=== PATIENT | male | born 1970 | race American Indian/Alaskan Native ===

== ENCOUNTER 2019-01-24 05:28 | Inpatient (IN) | payer SELFPAY ==
--- NOTE | 2019-01-24 06:12 | XRay Report ---
PROCEDURE: XR CHEST 1V AP TECHNIQUE: AP portable chest radiograph HISTORY: Chest Pain COMPARISONS: None FINDINGS: Right chest central line terminates in the region of the superior cavoatrial junction. No mediastinal shift. Cardiac silhouette is not enlarged. Patchy right greater than left basilar opacities. Mild bl unting of the right costophrenic angle. No pneumothorax or acute skeletal finding. IMPRESSION: Patchy bibasilar opacities with small right and possible trace left pleural effusion may be due to ed emily and/or infection. This document is electronically signed by Johnny Ryan MD., January 24 2019 06:10:47 AM ET
[2019-01-24 06:22] LABS: Hemoglobin 7.6 gm/dl (11.8-15.2); Red Blood Count 2.75 M/mm3 (3.65-5.03)
[2019-01-24 06:23] LABS: Hematocrit 22.3 % (35.5-45.6); Mean Corpuscular HGB Conc 34 % (32-34); Mean Corpuscular Volume 81 fl (84-94); Platelet Count 213 K/mm3 (140-440); Red Cell Distribution Width 18.1 % (13.2-15.2)
[2019-01-24 06:25] LABS: INR 0.9 (0.87-1.13); Monocytes # (Auto) 1.1 K/mm3 (0.0-0.8)
[2019-01-24 06:26] LABS: Albumin 3.7 g/dL (3.9-5); Calcium 9.1 mg/dL (8.4-10.2); Partial Thromboplastin Time 30.5 Sec. (24.2-36.6)
[2019-01-24] MEDS ORDERED: DUONEB *Not for PRN Use IH ONE (06:32)
--- NOTE | 2019-01-24 06:35 | Emergency Department Report ---
HPI - General Chief Complaint: Dyspnea/Respdistress Time Seen by Provider: 01/24/19 06:08 - HPI HPI: 48-year-old after [place]ian male presents to the emergency department with complaint of shortness of breath that has been going on since last evening. He says that "it feels like I am drowning." The patient just started outpatient dialysis about 1 week ago. He gets dialysis and sees nephrology through [facility]. He says that he has required dialysis secondary to chronic drinking and smoking and "not taking care of myself", but he says that he has not had alcohol or cigarettes since his kidney issues started. He has not taken anything for her symptoms prior to presentation. He gets dialysis on Thursday/Thursday/Thursday. No recent travel or sick contacts at home. He denies any fever, chest pain, nausea, vomiting. He feels that the shortness of breath is exertional. ED Past Medical Hx - Past Medical History Previous Medical History?: Yes Additional medical history: Dialysis MWF - Surgical History Past Surgical History?: No - Social History Smoking Status: Former Smoker Substance Use Type: None - Medications Home Medications: Home Medications Medication Instructions Recorded Confirmed Last Taken Type Unobtainable 01/24/19 01/24/19 Unknown History ED Review of Systems ROS: Stated complaint: SOB Other details as noted in HPI Comment: All other systems reviewed and negative Constitutional: denies: chills, fever Eyes: denies: eye pain, vision change ENT: denies: ear pain, throat pain Respiratory: cough, orthopnea, shortness of breath Cardiovascular: denies: chest pain, edema Gastrointestinal: denies: abdominal pain, vomiting Genitourinary: denies: dysuria, discharge Musculoskeletal: denies: back pain, arthralgia Skin: denies: rash, lesions Neurological: denies: headache, weakness Physical Exam - Physical Exam Vital Signs: Vital Signs 01/24/19 05:47 Temperature 98.1 F Pulse Rate 112 H Respiratory 21 Rate Blood Pressure 143/86 O2 Sat by Pulse 94 Oximetry Physical Exam: GENERAL: The patient is well-developed well-nourished. HEENT: Normocephalic. Atraumatic. Patient has moist mucous membranes. EYES: Extraocular motions are intact. Pupils are equal and reactive to light bilaterally. NECK: Supple. Trachea is midline. CHEST/LUNGS: Coarse breath sounds with the chest. There is some rhonchi to the right base. Tachypnea but no accessory muscle use. A productive sounding cough heard with examination. There is no respiratory distress noted. HEART/CARDIOVASCULAR: Regular. There is mild tachycardia. There is no obvious murmur. ABDOMEN: Abdomen is soft, nontender. Patient has normal bowel sounds. There is no abdominal distention. SKIN: Skin is warm and dry. NEURO: The patient is awake, alert, and oriented. The patient is cooperative. The patient has no focal neurologic deficits. The patient has normal speech. MUSCULOSKELETAL: There is no tenderness or deformity. There is no evidence of acute injury. ED Course Vital Signs 01/24/19 05:47 Temperature 98.1 F Pulse Rate 112 H Respiratory 21 Rate Blood Pressure 143/86 O2 Sat by Pulse 94 Oximetry - Consultations Consultation #1: 01/24/19 07:57 I spoke with the tractor sweeper operator on-call, Dr. Gaspar, who will consult on the patient regarding his chronic kidney disease and need for dialysis. ED Medical Decision Making - Lab Data Result diagrams: 01/24/19 06:03 01/24/19 06:03 - EKG Data -: EKG Interpreted by Me EKG shows normal: sinus rhythm, axis (left axis deviation), intervals, QRS complexes (q waves to the septal and anterior leads), ST-T waves Rate: tachycardia (108 bpm) - EKG Data When compared to previous EKG there are: previous EKG unavailable Interpretation: other (sinus tachycardia, left axis deviation, Q waves to the septal and anterior leads) - Radiology Data Radiology results: image reviewed interpreted by me: Chest x-ray shows some pulmonary vascular congestion, bilateral pleural effusions and some patchy right basilar infiltrate. - Medical Decision Making Patient presents with shortness of breath that has been going on and getting progressive worse since last evening. Chest x-ray shows some concern for pleural effusions and possible pneumonia. Labs show very elevated BUN/creatinine and creatinine but no hyperkalemia. He was given some breathing treatments. I attempted to place the patient on a Venturi mask but the patient refuses and will only ramp up his oxygen to 6 L via nasal cannula. Nephrology has been contacted and consult. The patient has been accepted for admission by the hospitalist, Dr. Marques. - Differential Diagnosis CHF, Pneumonia, Asthma, Bronchitis Critical Care Time: No Critical care attestation.: If time is entered above; I have spent that time in minutes in the direct care of this critically ill patient, excluding procedure time. ED Disposition Clinical Impression: ESRD needing dialysis Pneumonia Qualifiers: Pneumonia type: due to unspecified organism Laterality: right Lung location: lower lobe of lung Qualified Code(s): J18.1 - Lobar pneumonia, unspecified organism Volume overload Qualifiers: Hypervolemia type: unspecified Qualified Code(s): E87.70 - Fluid overload, unspecified CKD (chronic kidney disease) Qualifiers: Chronic kidney disease stage: on chronic dialysis Qualified Code(s): N18.6 - End stage renal disease; Z99.2 - Dependence on renal dialysis Disposition: 09 OP ADMIT IP TO THIS HOSP Is pt being admited?: Yes Condition: Serious Instructions: Bacterial Pneumonia (ED) Referrals: PRIMARY CARE, [Primary Care Provider] - 3-5 Days Time of Disposition: 08:00
[2019-01-24] MEDS ORDERED: LEVAQUIN 750MG/150ML 750 MG/150 ML BAG IV ONE (06:38)
[2019-01-24] MEDS ORDERED: SODIUM CHLORIDE FLUSH SYRINGE 10 ML IV PRN (07:31)
[2019-01-24] MEDS ORDERED: PROVENTIL IH PRN (07:31)
[2019-01-24] MEDS ORDERED: ZOFRAN IV PRN (07:31)
[2019-01-24] MEDS ORDERED: TYLENOL PO PRN (07:31)
--- NOTE | 2019-01-24 07:38 | History and Physical Report ---
History of Present Illness Date of examination: 01/24/19 Date of admission: 01/24/19 Chief complaint: Shortness of breath History of present illness: The patient is a 48-year-old male who presents to the ED with complaint of shortness of breath, states that he feels like his job and he knows his lungs are field with fluids. He doesn't also past history of substance abuse including cocaine, marijuana, also EtOH abuse and quit all in the last 1 week when he stated that he was started on dialysis following a sudden onset of shortness of breath. He reports that he follows [facility] and his last dialysis was 3 days prior to admission on Thursday reported that he only had to our system of 3 hours of dialysis on that day. He denies any recent travel denies any history of pulmonary embolism or DVT. He denies any history of diabetes mellitus. His dialysis was also result of chronic drinking and smoking and not taking care of himself. On presentation to the ER his oxygen saturation was in the low 80s. Attempt to place the patient on Ventimask was rebuffed by the patient who wanted 6 L of oxygen. He states that over the weekend he may have overdone it and did not comply with fluid restrictions, he reports chills but denies fever. Past History Past Medical History: ESRD, hypertension Past Surgical History: Other (AV graft) Social history: smoking (states that he quit), alcohol abuse (, also reports drug abuse quit a week ago also), full code Family history: CAD (father ), diabetes (mother and father) Medications and Allergies Allergies Allergy/AdvReac Type Severity Reaction Status Date / Time Penicillins Allergy Shortness Verified 01/24/19 05:51 of Breath Home Medications Medication Instructions Recorded Confirmed Last Taken Type Unobtainable 01/24/19 01/24/19 Unknown History Active Meds: Active Medications Acetaminophen (Tylenol) 650 mg PO Q4H PRN PRN Reason: Pain MILD(1-3)/Fever >100.5/GUEVARA Albuterol (Proventil) 2.5 mg IH Q3HRT PRN PRN Reason: Shortness Of Breath Albuterol/Ipratropium (Duoneb *Not For Prn Use*) 1 ampul IH Q6HRT [facility] Budesonide (Pulmicort) 0.5 mg IH Q12HRT [facility] Famotidine (Pepcid) 10 mg PO BID [facility] Heparin Sodium (Porcine) (Heparin) 5,000 unit SUB-Q Q12HR [facility] Levofloxacin/Dextrose (Levaquin 750mg/150ml) 750 mg in 150 mls @ 100 mls/hr IV ONCE ONE Stop: 01/24/19 08:07 Last Admin: 01/24/19 06:44 Dose: 100 mls/hr Documented by: Levofloxacin/Dextrose (Levaquin 750mg/150ml) 750 mg in 150 mls @ 100 mls/hr IV Q24HR [facility]; Protocol Ondansetron HCl (Zofran) 4 mg IV Q8H PRN PRN Reason: Nausea And Vomiting Senna (Senokot) 8.6 mg PO Q12HR [facility] Sodium Chloride (Sodium Chloride Flush Syringe 10 Ml) 10 ml IV BID [facility] Sodium Chloride (Sodium Chloride Flush Syringe 10 Ml) 10 ml IV PRN PRN PRN Reason: LINE FLUSH Review of Systems Constitutional: weight gain, lethargy, no weight loss, no fever, no chills, no sweats, no night sweats, no anorexia, no fatigue, no weakness, no malaise, no poor appetite, no daytime sleepiness, no chronic pain Ears, nose, mouth and throat: no ear discharge, no decreased hearing, no nasal discharge, no dental pain, no hoarseness, no headache, no other Cardiovascular: orthopnea, edema, shortness of breath, dyspnea on exertion, leg edema, no chest pain, no palpitations, no rapid/irregular heart beat, no syncope, no lightheadedness, no phlebitis, no high blood pressure Respiratory: shortness of breath, dyspnea on exertion, congestion, no cough, no cough with sputum, no hemoptysis Gastrointestinal: no abdominal pain, no vomiting, no constipation, no hematemesis, no hematochezia, no loss of appetite, no belching, no jaundice, no early satiety Rectal: no bleeding Musculoskeletal: no shooting arm pain, no arm numbness/tingling, no low back pain, no leg numbness/tingling, no muscle cramps, no atrophy, no fractures, no other Integumentary: no pruritis, no sores, no jaundice, no acne, no unusual bruising, no brittle nails, no foot/leg ulcers Neurological: no paralysis, no parathesias, no numbness, no seizures, no tremors, no change in speech, no confusion, no changes in smell/taste, no motor disturbance, no sensory deficit, no hearing difficulties, no burning pain Psychiatric: irritability, no memory loss, no change in sleep habits, no insomnia, no hypersomnia, no change in libido, no disorientation, no hopelessness, no anxiety attacks, no difficulties concentrating, no mood swings Endocrine: no heat intolerance, no excessive thirst, no polyuria, no nocturia, no proptosis, no thyroid mass, no recent glucocorticoid use Hematologic/Lymphatic: no easy bruising, no easy bleeding Allergic/Immunologic: no allergic rhinitis, no anaphylaxis Exam - Physical Exam Narrative exam: VITAL SIGNS: Reviewed. GENERAL: The patient appeared mild to moderate respiratory distress Vital signs as documented. HEAD: No signs of head trauma. EYES: Pupils are equal. Extraocular motions intact. EARS: Hearing grossly intact. MOUTH: Oropharynx is normal. NECK: No adenopathy, no JVD. CHEST: Chest with crackles breath sounds bilaterally. No wheezes, rales, or rhonchi. CARDIAC: Regular rate and rhythm. S1 and S2, without murmurs, gallops, or rubs. VASCULAR: +1 pitting Edema. Peripheral pulses normal and equal in all extremities. ABDOMEN: Soft, non tender and non distended. No rebound or guarding, and no masses palpated. Bowel Sounds normal. MUSCULOSKELETAL: Good range of motion of all major joints. Extremities without clubbing, cyanosis . Bilaterally +1 pitting edema. NEUROLOGIC EXAM: Alert and oriented x 3 No focal sensory or strength deficits. Speech normal. Follows commands. PSYCHIATRIC: Mood normal. SKIN: No rash or lesions. - Constitutional Vitals: Temp Pulse Resp BP Pulse Ox 98.1 F 116 H 22 132/71 93 01/24/19 05:47 01/24/19 07:15 01/24/19 07:15 01/24/19 07:15 01/24/19 07:15 Results - Labs CBC & Chem 7: 01/24/19 11:49 01/24/19 06:03 Labs: Laboratory Last Values WBC 9.5 K/mm3 (4.5-11.0) 01/24/19 06:03 RBC 2.75 M/mm3 (3.65-5.03) L 01/24/19 06:03 Hgb 7.6 gm/dl (11.8-15.2) L 01/24/19 06:03 Hct 22.3 % (35.5-45.6) L 01/24/19 06:03 MCV 81 fl (84-94) L 01/24/19 06:03 MCH 28 pg (28-32) 01/24/19 06:03 MCHC 34 % (32-34) 01/24/19 06:03 RDW 18.1 % (13.2-15.2) H 01/24/19 06:03 Plt Count 213 K/mm3 (140-440) 01/24/19 06:03 [place] % (Auto) 12.0 % (0.0-7.3) H 01/24/19 06:03 Eos % (Auto) 1.0 % (0.0-4.3) 01/24/19 06:03 [place] # 1.1 K/mm3 (0.0-0.8) H 01/24/19 06:03 Seg Neutrophils % 65.4 % (40.0-70.0) 01/24/19 06:03 Seg Neutrophils # 6.3 K/mm3 (1.8-7.7) 01/24/19 06:03 PT 12.7 Sec. (12.2-14.9) 01/24/19 06:03 INR 0.90 (0.87-1.13) 01/24/19 06:03 APTT 30.5 Sec. (24.2-36.6) 01/24/19 06:03 Sodium 134 mmol/L (137-145) L 01/24/19 06:03 Potassium 4.9 mmol/L (3.6-5.0) 01/24/19 06:03 Chloride 94.2 mmol/L (98-107) L 01/24/19 06:03 Carbon Dioxide 21 mmol/L (22-30) L 01/24/19 06:03 Anion Gap 24 mmol/L 01/24/19 06:03 BUN 84 mg/dL (9-20) H 01/24/19 06:03 Creatinine 17.9 mg/dL (0.8-1.5) H 01/24/19 06:03 Estimated GFR 3 ml/min 01/24/19 06:03 BUN/Creatinine Ratio 5 % 01/24/19 06:03 Glucose 107 mg/dL (75-100) H 01/24/19 06:03 Calcium 9.1 mg/dL (8.4-10.2) 01/24/19 06:03 Total Bilirubin 0.80 mg/dL (0.1-1.2) 01/24/19 06:03 AST 36 units/L (5-40) 01/24/19 06:03 ALT 94 units/L (7-56) H 01/24/19 06:03 Alkaline Phosphatase 148 units/L (35-129) H 01/24/19 06:03 Total Protein 7.1 g/dL (6.3-8.2) 01/24/19 06:03 Albumin 3.7 g/dL (3.9-5) L 01/24/19 06:03 Albumin/Globulin Ratio 1.1 % 01/24/19 06:03 Assessment and Plan Assessment and plan: Patient is a 48-year-old male with hx of Tobacco, alcohol, and substance abuse (Now stopped per pt) recently diagnosed ESRD, started on HD MWF presenting today with shortness of breath, believes it is secondary to non compliance with PO intake presented to much by mouth intake. On presentation was noted to be hypoxic with PO2 of 51. CXR: Patchy bibasilar opacities with small right and possible trace left pleural effusion may be due to edema and/or infection. Acute hypoxic Respiratory failure secondary to fluid overload with underlying partial dialysis on Thursday SIRS with organ dysfunction Presumed underlying Pneumonia, although no fever or Leukocytosis ESRD-Recently started dialysis M/W/F-[facility] Anemia-Possible of kidney disease Former Nicotine and Alcohol use disorder-quit recently Elevated ALT/ALK PHOS Plan Admit to [facility] Nephrology consulted and started on Dialysis today Nebs ordered Home meds not known by the patient, a request for records and home medication list made and pending Will give a dose of lasix once now while awaiting for dialysis Start on empiric abx, and if on repeat imaging following dialysis there is no clear evidence of PNA, can stop and watch patient off abx Continued to encourage cessation of risk factors. DVT prophylaxis Plan of care Discussed with the patient to determine for breast understanding Advance Directives: Yes Plan of care discussed with patient/family: Yes
[2019-01-24] MEDS ORDERED: PULMICORT IH SCH (08:00)
[2019-01-24] MEDS: DUONEB *Not for PRN Use IH SCH ×2 (08:20→14:22)
[2019-01-24 09:06] LABS: Total Cells Counted 100
[2019-01-24 09:09] LABS: Anisocytosis 1+; Large Platelets Rare; Platelet Estimate Consistent w Auto; Schistocytes 1+
[2019-01-24] MEDS ORDERED: PROCRIT IV PRN (09:14)
--- NOTE | 2019-01-24 09:16 | Consultation ---
History of Present Illness - Reason for Consult Consult date: 01/24/19 end stage renal disease - History of Present Illness The patient is a 48 year old male with ESRD on HD started1 week ago, last HD was Thursday, came to the ER for worsening SOB, CXR is showing possible pneumonia and volume overload, renal consult was requested for HD management Past History Past Medical History: ESRD, hypertension Medications and Allergies Allergies Allergy/AdvReac Type Severity Reaction Status Date / Time Penicillins Allergy Shortness Verified 01/24/19 05:51 of Breath Home Medications Medication Instructions Recorded Confirmed Last Taken Type Unobtainable 01/24/19 01/24/19 Unknown History Active Meds: Active Medications Acetaminophen (Tylenol) 650 mg PO Q4H PRN PRN Reason: Pain MILD(1-3)/Fever >100.5/GUEVARA Albuterol (Proventil) 2.5 mg IH Q3HRT PRN PRN Reason: Shortness Of Breath Albuterol/Ipratropium (Duoneb *Not For Prn Use*) 1 ampul IH Q6HRT [facility] Last Admin: 01/24/19 08:20 Dose: Not Given Documented by: Budesonide (Pulmicort) 0.5 mg IH Q12HRT [facility] Last Admin: 01/24/19 08:21 Dose: Not Given Documented by: Famotidine (Pepcid) 10 mg PO BID [facility] Heparin Sodium (Porcine) (Heparin) 5,000 unit SUB-Q Q12HR [facility] Levofloxacin/Dextrose (Levaquin 500mg/100ml) 500 mg in 100 mls @ 100 mls/hr IV Q48HR [facility] Ondansetron HCl (Zofran) 4 mg IV Q8H PRN PRN Reason: Nausea And Vomiting Senna (Senokot) 8.6 mg PO Q12HR [facility] Sodium Chloride (Sodium Chloride Flush Syringe 10 Ml) 10 ml IV BID [facility] Sodium Chloride (Sodium Chloride Flush Syringe 10 Ml) 10 ml IV PRN PRN PRN Reason: LINE FLUSH Review of Systems All systems: negative (SOB, weakness) Exam - Vital Signs Vital signs: Vital Signs Temp Pulse Resp BP Pulse Ox 98.1 F 112 H 21 143/86 94 01/24/19 05:47 01/24/19 05:47 01/24/19 05:47 01/24/19 05:47 01/24/19 05:47 - General Appearance General appearance: well-developed, well-nourished EENT: ATNC, PERRL Neck: Present: neck supple Respiratory: Rales, Ronchi, Wheezes Heart: regular, S1S2 Gastrointestinal: Present: normoactive bowel sounds. Absent: tenderness, distended Integumentary: no rash, warm and dry Neurologic: no focal deficit, no asterixis, alert and oriented x3 Musculoskeletal: Present: other (trace pitting edema) Psychiatric: mood/affect appropriate, cooperative Results - Lab Results 01/24/19 06:03 01/24/19 06:03 Most recent lab results Calcium 9.1 mg/dL (8.4-10.2) 01/24/19 06:03 Assessment and Plan ESRD on HD hypoxic respiratory failure Anmeia in CKD HTN - HD today for clearance and volume removal - will assess dialysis nedds daily, will likely needs another tx tomorrow - Epogen with HD - renally dose meds - strict I&O - daily weight Sae Hubbard MD [phone]
[2019-01-24] MEDS ORDERED: SENOKOT PO SCH (10:00)
[2019-01-24] MEDS ORDERED: PEPCID PO SCH (10:00)
[2019-01-24] MEDS ORDERED: SODIUM CHLORIDE FLUSH SYRINGE 10 ML IV SCH (10:00)
[2019-01-24] MEDS ORDERED: HEPARIN SUB-Q SCH (10:00)
[2019-01-24] MEDS ORDERED: SOLU-Medrol IV ONE (11:00)
[2019-01-24] MEDS ORDERED: LASIX IV ONE (11:00)
[2019-01-24 12:13] LABS: Hemoglobin 7.7 gm/dl (11.8-15.2)
[2019-01-24 12:32] LABS: Creatine Kinase MB 2.1 ng/mL (0.0-4.0)
[2019-01-24 12:45] LABS: Chol/HDL Ratio 2.57 %
[2019-01-24 18:13] VITALS: BP 158/84
[2019-01-24 18:22] LABS: Creatine Kinase MB 2.5 ng/mL (0.0-4.0)
[2019-01-24] MEDS ORDERED: NACL 0.9 (PRIMING MACHINE ONLY DIALYSIS) MC ONE (18:57)
[2019-01-24 19:01] LABS: Hepatitis B Surface Antigen Non-Reactive (Negative); Hepatitis C Virus Antibody Reactive (NonReactive)
[2019-01-26] MEDS ORDERED: LEVAQUIN 750MG/150ML 750 MG/150 ML BAG IV SCH (10:00)
[2019-01-26] MEDS ORDERED: LEVAQUIN 500MG/100ML 500 MG/100 ML BAG IV SCH (10:00)
== END 2019-01-24 19:26 | disposition left against medical advice (07) | DRG 189 ==
LOC: ED 05:28 → 3A 07:31
PROVIDERS: ADMIT Internal Medicine; ATTEND Internal Medicine
PROC: 5A1D70Z Performance of Urinary Filtration, Intermittent, Less than 6 Hours Per Day (ICD-10-PCS; principal; 2019-01-24)
PROC: 4A033R1 Measurement of Arterial Saturation, Peripheral, Percutaneous Approach (ICD-10-PCS; 2019-01-24)
DX: J96.01 Acute respiratory failure with hypoxia (principal); N18.6 End stage renal disease; R65.11 Systemic inflammatory response syndrome (SIRS) of non-infectious origin with acute organ dysfunction; I12.0 Hypertensive chronic kidney disease with stage 5 chronic kidney disease or end stage renal disease; D63.1 Anemia in chronic kidney disease; F10.10 Alcohol abuse, uncomplicated; E87.70 Fluid overload, unspecified; Z88.0 Allergy status to penicillin; Z82.49 Family history of ischemic heart disease and other diseases of the circulatory system; Z83.3 Family history of diabetes mellitus; Z99.2 Dependence on renal dialysis
CPT/HCPCS: 36415; 36600; 71045; 80053; 80061; 80074; 82550; 82553; 82803; 84484; 85007; 85014; 85018; 85025; 85610; 85730; 87040; 93005; 93010; 93306; G0378; J1644; J1940; J1956; J2930; J7030